=== PATIENT | female | born 1930 | race Caucasian/White ===

== ENCOUNTER → 2017-12-26 | Outpatient (CLI) | payer MEDICARE ==
[~2017-12-26] MED LIST: ALBU3IS INH; ASPI325 PT; ASPIRIN PT; ATOR40TA PT; Acephen650 MG PR; Acidophilus1 EAC2 PO; Aspir 8181 MG PO; Aspirin EC81 MG PO; FURO20 PO; K-Dur10 MEQ PO; LEVSOD75 PO; LEVSOD75 PT; LISI20 PT; LISI5 PO; LOSA50 PO; LOVA40 PO; METO50ER PO; Merrem500 MG IV; Metoprolol Succ25 MG PO; Pedi-Dri 100,0060 GM TOP; Sodium Chlorid250 M1 IV; TRIHYD253A PO; TRIHYD253A PT; VERA120ERB; Zithromax250 MG PO
[2017-12-26 13:41] LABS: Bilirubin, Urine Neg (Neg); Blood, Urine 2+ (Neg); Glucose Qualitative, Urine Neg (Neg); Ketones, Urine Neg (Neg); Leukocyte Esterase, Urine 3+ (Neg); Nitrite, Urine Neg (Neg); Protein, Urine 1+ (Neg); Specific Gravity, Urine 1.015 (1.003-1.022); Urobilinogen, Urine NORM (Normal)
[2017-12-26 13:49] LABS: Appearance, Urine Cloudy (Clear); Color, Urine Yellow (P-Yellow)
[2017-12-26 13:55] LABS: Bacteria Many /hpf; Squamous Epithelial Cells Few /hpf (Few); White Blood Cells, Urine TNTC /hpf (0-5)
== END ==
LOC: LAB 12:32
PROVIDERS: Nurse Practitioner Family
DX: R82.90 Unspecified abnormal findings in urine (principal)
CPT/HCPCS: 81001; 87077; 87086; 87186

== ENCOUNTER → 2018-02-11 | Outpatient (CLI) | payer MEDICARE ==
[~2018-02-11] MED LIST changes: -ALBU3IS INH; -Acephen650 MG PR; -Acidophilus1 EAC2 PO; -Aspirin EC81 MG PO; -FURO20 PO; -K-Dur10 MEQ PO; -LISI5 PO; -LOSA50 PO; -METO50ER PO; -Merrem500 MG IV; -Metoprolol Succ25 MG PO; -Pedi-Dri 100,0060 GM TOP; -Sodium Chlorid250 M1 IV
[2018-02-11 12:49] LABS: Bilirubin, Urine Neg (Neg); Blood, Urine 2+ (Neg); Glucose Qualitative, Urine Neg (Neg); Ketones, Urine Neg (Neg); Leukocyte Esterase, Urine 3+ (Neg); Nitrite, Urine Pos (Neg); Protein, Urine Neg (Neg); Specific Gravity, Urine 1.015 (1.003-1.022); Urobilinogen, Urine NORM (Normal); pH, Urine 6.5 (5.0-8.0)
[2018-02-11 13:02] LABS: Appearance, Urine Cloudy (Clear); Color, Urine Yellow (P-Yellow)
[2018-02-11 13:07] LABS: White Blood Cells, Urine 25-50 /hpf (0-5)
[2018-02-11 13:10] LABS: Squamous Epithelial Cells Few /hpf (Few)
[2018-02-11 13:11] LABS: Bacteria Many /hpf
== END | disposition home or self-care (01) ==
LOC: LAB 12:36 → LAB SHORT 12:36
PROVIDERS: Registered Nurse
DX: R82.90 Unspecified abnormal findings in urine (principal)
CPT/HCPCS: 81001; 87077; 87086; 87186